=== PATIENT | male | born 1955 | race Caucasian/White ===

== ENCOUNTER → 2016-10-06 | Day surgery (SDC) | payer MEDICARE, OTHER ==
[~2016-10-06] MED LIST: DILANTIN PO; LYRICA PO; METOPROLOL SUCC50 MG PO; PAXIL40 MG PO; PERCOCET 7.5-31 EACH PO; PERCOCET10 PO; SEROQUEL XR150 MG PO; SIMVASTATIN40 MG PO; ZESTRIL40 MG PO
--- NOTE | ~2016-10-06 | OR ---
Unit #: [id number] #: [id number] Patient: KIERRA HAMILTON [id number] [address] [address] [id number] O MR#: [id number] NAME: KIERRA HAMILTON ROOM: Date of Procedure: 10/06/2016 Admission Date: 10/06/2016 Surgeon: Mike Doss M.D. : 1955 Attending Physician: Mike Doss M.D. OPERATIVE REPORT JOB NOTE: CC: [facility] PREOPERATIVE DIAGNOSES Back pain, radiculopathy, degenerative lumbar disk disease. POSTOPERATIVE DIAGNOSES Back pain, radiculopathy, degenerative lumbar disk disease. PROCEDURE PERFORMED Lumbar epidural steroid injection with intravenous sedation and fluoroscopic guidance for needle localization. INDICATIONS FOR PROCEDURE The patient is a 61-year-old male with worsening back, bilateral hip, and at times left lower extremity radicular pain due to multilevel nonsurgical degenerative disk and spine disease with some nerve root impingement. Plan is for trial of epidural steroids after failing attempts of conservative treatment. Risks and benefits of all have been reviewed. DESCRIPTION OF PROCEDURE The patient was placed in a seated position. Standard monitors were applied. 4 mg of Versed were given in divided doses for anxiolysis and sedation, which were adequate. Vital signs remained stable. Sterile prep and drape then of the lumbar area was performed. The skin then at the L5-S1 level was localized with 1% lidocaine. An 18-gauge Hustead needle was then advanced via loss of resistance technique and fluoroscopic guidance in toward the epidural space. After confirming proper positioning with fluoroscopy and radiographic contrast, 80 mg of Depo-Medrol and 4 mL of 0.125% bupivacaine were deposited. The patient tolerated the procedure otherwise well and was discharged to the recovery room in stable condition. Dictated by... Tulio Ellis/taj TD: 10/06/2016 12:27 JOB #: [id number] Unit #: [id number] #: [id number] Patient: KIERRA HAMILTON OPERATIVE REPORT Page 1 of 1 X Mike Doss, X PROCEDURE OPERATIVE NOTE
== END | disposition home or self-care (01) ==
LOC: CCSC 10:10
DX: M51.16 Intervertebral disc disorders with radiculopathy, lumbar region (principal); I25.10 Atherosclerotic heart disease of native coronary artery without angina pectoris; I25.2 Old myocardial infarction; M19.90 Unspecified osteoarthritis, unspecified site; F41.9 Anxiety disorder, unspecified; Z79.899 Other long term (current) drug therapy
CPT/HCPCS: J1040; J2250

== ENCOUNTER → 2016-10-27 | Day surgery (SDC) | payer MEDICARE ==
--- NOTE | ~2016-10-27 | OR ---
Unit #: [id number] #: [id number] Patient: KIERRA HAMILTON [id number] [address] [address] [id number] O MR#: [id number] NAME: KIERRA HAMILTON ROOM: Date of Procedure: 10/27/2016 Admission Date: 10/27/2016 Surgeon: Mike Doss M.D. : 1955 Attending Physician: Mike Doss M.D. Referring Physician: Mike Doss M.D. OPERATIVE REPORT PREOPERATIVE DIAGNOSES Back pain, radiculopathy, degenerative lumbar disk disease. POSTOPERATIVE DIAGNOSES Back pain, radiculopathy, degenerative lumbar disk disease. PROCEDURE PERFORMED Lumbar epidural steroid injection with intravenous sedation and fluoroscopic guidance for needle localization. INDICATIONS FOR PROCEDURE This is a 61-year-old male with worsening back greater than bilateral hip and left lower extremity pain due to multilevel multifactorial nonsurgical degenerative disk and spine disease. Initial epidural steroid injection 3 weeks ago resulted in improvement of the left leg pain, mild change in the back pain. Based on good initial partial response, his pathology and symptomatology, we are going to proceed with a repeat epidural steroid injection today. DESCRIPTION OF PROCEDURE The patient was placed in a seated position. Standard monitors were applied. 4 mg of Versed were given for sedation and anxiolysis, which were adequate. Vital signs remained stable. Sterile prep and drape then of the lumbar area was performed. The skin at the L4-5 level was localized with 1% lidocaine. An 18-gauge Dinero Limitedtead needle was then advanced via loss of resistance technique and fluoroscopic guidance in toward the epidural space. After confirming proper positioning with fluoroscopy and radiographic contrast, 80 mg of Depo-Medrol and 6 mL of 0.5% lidocaine were deposited. The patient tolerated the procedure otherwise well and was discharged to the recovery room in stable condition. Dictated by... Tulio EllisP/jose cl TD: 10/28/2016 08:01 JOB #: [id number] Unit #: [id number] #: [id number] Patient: KIERRA HAMILTON OPERATIVE REPORT Page 1 of 1 X Mike Doss MD X PROCEDURE OPERATIVE NOTE
== END | disposition home or self-care (01) ==
LOC: CCSC 09:57
DX: M51.16 Intervertebral disc disorders with radiculopathy, lumbar region (principal); I25.10 Atherosclerotic heart disease of native coronary artery without angina pectoris; I25.2 Old myocardial infarction; M19.90 Unspecified osteoarthritis, unspecified site
CPT/HCPCS: J1040; J2250